=== PATIENT | female | born 1940 | race Caucasian/White ===

== ENCOUNTER → 2017-10-18 | Outpatient (CLI) | payer MEDICARE ==
[~2017-10-18] MED LIST: ASPI-555 PO; ATEN50TA PO; CALC600T12 PO; LOVA40TA2 PO; VIT E
== END | disposition home or self-care (01) ==
LOC: RAH 09:37
PROVIDERS: ATTEND Internal Medicine
DX: M47.896 Other spondylosis, lumbar region (principal); Z98.890 Other specified postprocedural states
CPT/HCPCS: 72100

== ENCOUNTER → 2020-09-21 | Outpatient (CLI) | payer OTHER ==
[~2020-09-21] MED LIST changes: -ASPI-555 PO; +ASPI-556 PO; -CALC600T12 PO; +CALC600T15 PO
== END | disposition home or self-care (01) ==
LOC: RAH 12:59
PROVIDERS: ATTEND Internal Medicine
DX: M51.16 Intervertebral disc disorders with radiculopathy, lumbar region (principal); M85.88 Other specified disorders of bone density and structure, other site; M48.061 Spinal stenosis, lumbar region without neurogenic claudication
CPT/HCPCS: 72131

== ENCOUNTER → 2024-12-16 | Outpatient (CLI) | payer OTHER ==
[~2024-12-16] MED LIST changes: +CALC-1125 PO; -CALC600T15 PO
--- NOTE | 2024-12-16 15:13 | HMCIMG ---
DEXA BONE DENSITY SURVEY HISTORY: Menopause COMPARISON: None FINDINGS: Bone densitometry study was performed. Bone mineral density of the lumbar spine is 0.875 gram per centimeter square which corresponds to a T score of -1.3 and a Z score of 1.5. Bone mineral density of the left hip is 0.805 grams per centimeter square which corresponds to a T score of -1.1 and a Z score of 1.1. IMPRESSION: 1. Osteopenia of the lumbar spine and left hip.
== END | disposition home or self-care (01) ==
LOC: RAH 14:12
PROVIDERS: ATTEND Internal Medicine
DX: M85.89 Other specified disorders of bone density and structure, multiple sites (principal); N95.9 Unspecified menopausal and perimenopausal disorder
CPT/HCPCS: 77080